=== PATIENT | female | born 1965 | race Caucasian/White ===

== ENCOUNTER 2022-06-06 12:59 | Outpatient (CLI) | payer OTHER, SELFPAY ==
[2022-06-06 10:16] LABS: Albumin* 4.8 g/dL (3.3-5.0); Chloride* 101 mmol/L (96-114)
[2022-06-06 10:17] LABS: Potassium* 4.4 mmol/L (3.6-5.1); Sodium* 138 mmol/L (135-149)
[2022-06-06 10:19] LABS: Aspartate Amino Transferase* 31 U/L (12-35); Bilirubin Total* 0.5 mg/dL (0.1-1.5); Blood Urea Nitrogen* 18 mg/dL (7-30); Carbon Dioxide* 27 mmol/L (20-32); Cholesterol* 265 mg/dL (90-199); Creatinine* 0.8 mg/dL (0.5-1.5); Estimated Glomerular Filt Rate 86 ml/min; Glucose* 99 mg/dL (60-115); Total Protein* 7.7 g/dL (6.0-8.3)
[2022-06-06 10:20] LABS: Alanine Aminotransferase* 26 U/L (4-35); Alkaline Phosphatase* 72 U/L (40-150); Calcium* 9.5 mg/dL (8.4-10.6); HDL Cholesterol* 64 mg/dL (>=50); LDL Cholesterol Calculated 176 mg/dL (<100); Triglycerides* 125 mg/dL (40-149)
== END 2022-06-06 13:00 | disposition home or self-care (01) ==
PROVIDERS: PCP Family Medicine; Visit Provider Family Medicine
DX: E78.5 Hyperlipidemia, unspecified (principal); R79.89 Other specified abnormal findings of blood chemistry
CPT/HCPCS: 80053; 80061

== ENCOUNTER 2023-03-09 14:14 | Outpatient (CLI) | payer OTHER, SELFPAY ==
--- NOTE | 2023-03-09 14:40 | CRLHL7_ITS ---
For Patients: As a result of the Century Cures Act, medical imaging exams and procedure reports are released immediately into your electronic medical record. You may view this report before your referring provider. If you have questions, please contact your health care provider. BILATERAL SCREENING MAMMOGRAM WITH COMPUTER-AIDED DETECTION AND TOMOSYNTHESIS TECHNIQUE: CC and MLO views were obtained. These mammographic images have been obtained using full-field digital technique. These mammographic images were interpreted with the benefit of computer-aided detection. Breast Tomosynthesis was used in this interpretation. COMPARISON FILM: 03/31/2019. FINDINGS: There are scattered areas of fibroglandular density IMPRESSION: There is no radiographic evidence for malignancy. ASSESSMENT: BI-RADS Category 1: Negative RECOMMENDATION: Routine screening mammogram in 1 year. A lay language report of this examination will be provided to the patient. Adis Harding M.D. Diagnostic/Nuclear Medicine Radiologist [email or web address] AZRA/Dictated by: Adis Harding MD @ 03/12/2023 8:22:00 AM (Electronically Signed)
== END 2023-03-09 14:15 | disposition home or self-care (01) ==
LOC: MAMMO 14:14
PROVIDERS: PCP Family Medicine; Visit Provider Family Medicine
DX: Z12.31 Encounter for screening mammogram for malignant neoplasm of breast (principal)
CPT/HCPCS: 77063; 77067

== ENCOUNTER 2023-06-25 07:57 | Outpatient (CLI) | payer OTHER, SELFPAY | END 2023-06-25 07:58 | disposition home or self-care (01) | LOC: NFLDREF 06-27 10:35 | PROVIDERS: PCP Family Medicine; Referring Provider Family Medicine; Visit Provider Family Medicine | DX: Z00.00 Encounter for general adult medical examination without abnormal findings (principal); E78.5 Hyperlipidemia, unspecified; I10 Essential (primary) hypertension; R79.89 Other specified abnormal findings of blood chemistry | CPT/HCPCS: 80053; 80061 ==

== ENCOUNTER 2024-07-01 08:30 | Outpatient (CLI) | payer OTHER, SELFPAY ==
--- OUTSIDE RECORDS SUMMARY | 2024-07-01 21:07 | XMS_ITS | Clinical Summary ---
Author Organization [facility] Address [place], [place] [address] Care Team Providers Care Ultrasonographer Name Role Phone Darline Restrepo MD Primary Care Provider + [phone] Family History Medical History Relation Name Comments Cancer-breast Paternal Grandmother Relation Name Status Comments Paternal Grandmother Social History Tobacco Use Types Packs/Day Years Used Date Smoking Tobacco: Never Assessed Sex and Gender Information Value Date Recorded Sex Assigned at Not on file Gender Identity Not on file Sexual Orientation Not on file Obstetrics History Plan of Treatment Not on file Care Teams Ultrasonographer Relationship Specialty [place] [address] [place] [address] PCP - General 01/30/07
== END 2024-07-01 08:31 | disposition home or self-care (01) ==
LOC: NFLDREF 21:05
PROVIDERS: PCP Family Medicine; Referring Provider Family Medicine; Visit Provider Family Medicine
DX: Z00.00 Encounter for general adult medical examination without abnormal findings (principal); I10 Essential (primary) hypertension; E78.5 Hyperlipidemia, unspecified; R79.89 Other specified abnormal findings of blood chemistry; Z11.59 Encounter for screening for other viral diseases
CPT/HCPCS: 80053; 80061; 86803

== ENCOUNTER 2024-07-11 08:29 | Outpatient (CLI) | payer OTHER, SELFPAY ==
--- OUTSIDE RECORDS SUMMARY | 2024-07-11 08:32 | XMS_ITS | Clinical Summary ---
Author Organization [facility] Address [place] [id number] Care Team Providers Care Elastic Yarn Twister Name Role Phone Darline Restrepo MD Primary Care Provider + [phone] Family History Medical History Relation Name Comments Cancer-breast Paternal Grandmother Relation Name Status Comments Paternal Grandmother Social History Tobacco Use Types Packs/Day Years Used Date Smoking Tobacco: Never Assessed Sex and Gender Information Value Date Recorded Sex Assigned at Not on file Gender Identity Not on file Sexual Orientation Not on file Obstetrics History Plan of Treatment Not on file Care Teams Elastic Yarn Twister Relationship Specialty [place] [address] [place] [address] PCP - General 01/30/07
--- NOTE | 2024-07-11 08:45 | CRLHL7_ITS ---
For Patients: As a result of the Century Cures Act, medical imaging exams and procedure reports are released immediately into your electronic medical record. You may view this report before your referring provider. If you have questions, please contact your health care provider. BILATERAL SCREENING MAMMOGRAM WITH COMPUTER-AIDED DETECTION AND TOMOSYNTHESIS TECHNIQUE: CC and MLO views were obtained. These mammographic images have been obtained using full-field digital technique. These mammographic images were interpreted with the benefit of computer-aided detection. Breast Tomosynthesis was used in this interpretation. COMPARISON FILM: 03/09/23, 03/31/19. FINDINGS: There are scattered areas of fibroglandular density. IMPRESSION: There is no radiographic evidence for malignancy. ASSESSMENT: BI-RADS Category 1: Negative RECOMMENDATION: Routine screening mammogram in 1 year. A lay language report of this examination will be provided to the patient. Liam Aquino M.D. Diagnostic Radiologist [email or web address] SP/Dictated by: Liam Aquino MD @ 07/15/2024 11:53:00 AM (Electronically Signed)
== END 2024-07-11 08:30 | disposition home or self-care (01) ==
LOC: MAMMO 08:30
PROVIDERS: PCP Family Medicine; Visit Provider Family Medicine
DX: Z12.31 Encounter for screening mammogram for malignant neoplasm of breast (principal)
CPT/HCPCS: 77063; 77067

== ENCOUNTER 2025-04-02 07:56 | Outpatient (CLI) | payer OTHER, SELFPAY ==
[2025-04-04 00:23] LABS: Thyroid Stimulating IgG (TSI) <0.10 IU/L (<=0.54)
[2025-04-04 10:18] LABS: Total T4, Thyroxine 6.65 ug/dL (4.50-11.70)
== END 2025-04-02 07:57 | disposition home or self-care (01) ==
LOC: NPINS 07:58
PROVIDERS: PCP Family Medicine; Visit Provider Physician Assistant
DX: H54.7 Unspecified visual loss (principal)
CPT/HCPCS: 84436; 84443; 84445; 84480

== ENCOUNTER 2025-08-14 07:25 | Outpatient (CLI) | payer OTHER, SELFPAY | END 2025-08-14 07:26 | disposition home or self-care (01) | LOC: NFLDREF 08-20 13:28 | PROVIDERS: PCP Family Medicine; Referring Provider Family Medicine; Visit Provider Family Medicine | DX: E78.5 Hyperlipidemia, unspecified (principal); R79.89 Other specified abnormal findings of blood chemistry; E55.9 Vitamin D deficiency, unspecified; R73.03 Prediabetes; M81.0 Age-related osteoporosis without current pathological fracture | CPT/HCPCS: 80053; 80061; 82306; 82728; 82977; 83540; 83550; 87340 ==

== ENCOUNTER 2025-08-21 07:13 | Outpatient (CLI) | payer OTHER, SELFPAY ==
--- NOTE | 2025-08-21 07:15 | CRLHL7_ITS ---
For Patients: As a result of the Century Cures Act, medical imaging exams and procedure reports are released immediately into your electronic medical record. You may view this report before your referring provider. If you have questions, please contact your health care provider. INDICATION: Elevated LFTs. TECHNIQUE: Ultrasound abdomen complete. Sonographic images of the abdomen were obtained using veloz-scale and color Doppler images. COMPARISON: None available. FINDINGS: Liver: Increased echogenicity of the liver parenchyma. The liver measures 13.8 cm. Bile ducts: Intrahepatic bile ducts are not dilated. The common bile duct measures 0.5 cm. Gallbladder: No cholelithiasis, significant gallbladder wall thickening, or pericholecystic fluid identified. Negative sonographic Miramontes`s sign. Pancreas: Pancreas is poorly visualized secondary to acoustic shadowing from overlying/adjacent bowel gas. Right kidney: The right kidney measures 11.5 cm in length. 0.8 cm nonobstructing calculus in the interpolar region. No significant hydronephrosis. Left kidney: The left kidney measures 10.1 cm in length. No renal calculi or significant hydronephrosis is identified. Spleen: No splenomegaly. Spleen measures 9.1 cm. Visualized abdominal aorta: No aneurysmal dilation. Visualized IVC: Patent. IMPRESSION: 1. Increased echogenicity of the liver parenchyma, compatible with diffuse hepatic steatosis. 2. Nonobstructing 0.8 cm right renal calculus. Dictated by Alexey Mac MD @ 08/21/2025 2:22:48 PM (Electronically Signed)
== END 2025-08-21 07:14 | disposition home or self-care (01) ==
LOC: US 07:13
PROVIDERS: PCP Family Medicine; Visit Provider Family Medicine
DX: R79.89 Other specified abnormal findings of blood chemistry (principal); N20.0 Calculus of kidney
CPT/HCPCS: 76700